=== PATIENT | male | born 1955 | race Caucasian/White ===

== ENCOUNTER 2016-11-26 21:04 | Emergency (ER) | payer OTHER ==
--- NOTE | 2016-11-26 22:21 | ED NURSING NOTES ---
Clinical Report - Nurses [facility] [address] [place] [address] 11/26/2016 21:08 Patient: CLAUDETTE MIDDLETON TRIAGE Triage time 21:14. Acuity: LEVEL 3. Chief Complaint: INJURY TO FOREHEAD. ALAN COMA SCORE: Alan Coma Scale: 15- eyes open spontaneously (4); best verbal response- oriented x 4 (5); best motor response- obeys commands (6). --21:17 TonyaB, R.N. 21:14 11/26/16. BP: 149/85. HR: 90. RR: 16. O2 saturation: 96%. Temp: 98.2 F. Pain level now: 5/10. --21:17 TonyaB, R.N. Weight: 97.5 kg. Height/Length: 71 inches. BMI: 30. --21:13 TonyaB, R.N. Medications OxyCONTIN Oral. --21:20 TonyaB, R.N. ProAir HFA Inhalation. --21:20 TonyaB, R.N. TEGretol Oral. --21:21 TonyaB, R.N. Allergies No Known Drug Allergy. --21:19 TonyaB, R.N. History Arrived by private vehicle. Historian: patient. Accompanied by family. ( pt fell inthe yard and hit his head on a planter box, pt has a large lac above his right ebrow). This occurred just prior to arrival. He sustained a laceration. He has had a headache. 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 SOCIAL HX: Never smoker. Occasional alcohol use. No drug use. No infectious disease exposure. SELF HARM ASSESSMENT: A self harm assessment was performed. The patient answered "no" to the question "Have you recently felt down, depressed, or hopeless?", "Have you noticed less interest or pleasure in doing things?", "Do you have thoughts of harming or killing yourself?", "Are you here because you tried to hurt yourself?", "Have you ever tried to hurt yourself before today?", "Have you recently had thoughts about harming or killing others?" and "Do you have any dangerous items in your possession?". FALL RISK ASSESSMENT: Fall risk assessment completed. No fall risk identified. NUTRITIONAL RISK ASSESSMENT: The nutritional risk assessment revealed no deficiencies. FUNCTIONAL ASSESSMENT: Functional assessment: no impairments noted. LEARNING NEEDS ASSESSMENT: The learning needs assessment revealed no barriers. ABUSE ASSESSMENT: Abuse assessment: The patient was asked "Do you feel safe in your home?". SKIN INTEGRITY ASSESSMENT: Skin integrity risk assessment completed. No skin integrity risk identified. --21:17 Brenna Correa. PAST MEDICAL HX: Last tetanus: (1 years ago). --21:18 Brenna Correa. PROBLEMS: Asthma. Hypertension. --21:20 Brenna Correa. Chronic pain. --21:20 Brenna Correa. ADDITIONAL SURGERIES: Arm . Knee Surgery. --21:20 Brenna Correa. Interventions ID band on patient. To treatment room. --:17 Brenna Correa. PHYSICAL ASSESSMENT Ambulatory to room. GENERAL / NEURO / PSYCH: Alert. Oriented X 4. Appears in no acute distress. HEENT: Head non-tender. Pupils equal, round and reactive to light. EOM intact. Right eyebrow area: deep laceration. Ear within normal limits. Mouth within normal limits upon inspection. Voice within normal limits. No swelling of head. No nasal injury noted. No dental injury noted. Mucous membranes are pink. RESPIRATORY: Respirations not labored. CVS: Capillary refill less than 2 seconds. BACK: No neck or back tenderness. ROM normal to the neck and back. SKIN: Skin is warm and dry. --21:19 Brenna Correa. NURSING PROGRESS NOTES Patient identifiers checked. Call light placed in reach. Side rails up. Patient placed in chair. Brakes of chair on. --:21 Brenna Correa. Patient gowned. --21:21 Brenna Correa. Wound cleansed with sterile saline and Betadine. Applied clean occlusive dressing consisting of Band-Aid and 4x4 gauze, following the application of antibiotic ointment. Secured with tape. --22:04 Rosa Maria Correa ( pt still refused to blow for ETOH level, pt admits to having 3 drinks of whiskey prior to arrival). --22:05 Rosa Maria Correa DISPOSITION / DISCHARGE Departure time: 22:29. Condition at departure: stable. Discharge instructions provided and reviewed with disability benefits specialist and the patient. Reviewed warnings (re: patient intoxicated). Treatments reviewed. Reviewed referrals for followup. Patient and disability benefits specialist verbalized understanding. Written instructions provided in Somali. The patient was discharged home and accompanied by disability benefits specialist. He left the Emergency Department in a wheelchair and via private vehicle. Pre Owned Sales Manager driving. --22:30 Ulices Magdaleno R.N. 22:28 11/26/16. BP: 149/90. HR: 89. RR: 20. O2 saturation: 95% on room air. Pain level now: 0/10. --22:30 Ulices Magdaleno R.N. Locked/Released at 11/26/2016 22:31 by Ulices Magdaleno R.N.
--- NOTE | 2016-11-26 22:21 | ED NURSING NOTES ---
Clinical Report - Nurses [facility] [address] [place] [address] 11/26/2016 21:08 Patient: CLAUDETTE MIDDLETON TRIAGE Triage time 21:14. Acuity: LEVEL 3. Chief Complaint: INJURY TO FOREHEAD. ALAN COMA SCORE: Alan Coma Scale: 15- eyes open spontaneously (4); best verbal response- oriented x 4 (5); best motor response- obeys commands (6). --21:17 TonyaB, R.N. 21:14 11/26/16. BP: 149/85. HR: 90. RR: 16. O2 saturation: 96%. Temp: 98.2 F. Pain level now: 5/10. --21:17 TonyaB, R.N. Weight: 97.5 kg. Height/Length: 71 inches. BMI: 30. --21:13 TonyaB, R.N. Medications OxyCONTIN Oral. --21:20 TonyaB, R.N. ProAir HFA Inhalation. --21:20 TonyaB, R.N. TEGretol Oral. --21:21 TonyaB, R.N. Allergies No Known Drug Allergy. --21:19 TonyaB, R.N. History Arrived by private vehicle. Historian: patient. Accompanied by family. ( pt fell inthe yard and hit his head on a planter box, pt has a large lac above his right ebrow). This occurred just prior to arrival. He sustained a laceration. He has had a headache. 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 SOCIAL HX: Never smoker. Occasional alcohol use. No drug use. No infectious disease exposure. SELF HARM ASSESSMENT: A self harm assessment was performed. The patient answered "no" to the question "Have you recently felt down, depressed, or hopeless?", "Have you noticed less interest or pleasure in doing things?", "Do you have thoughts of harming or killing yourself?", "Are you here because you tried to hurt yourself?", "Have you ever tried to hurt yourself before today?", "Have you recently had thoughts about harming or killing others?" and "Do you have any dangerous items in your possession?". FALL RISK ASSESSMENT: Fall risk assessment completed. No fall risk identified. NUTRITIONAL RISK ASSESSMENT: The nutritional risk assessment revealed no deficiencies. FUNCTIONAL ASSESSMENT: Functional assessment: no impairments noted. LEARNING NEEDS ASSESSMENT: The learning needs assessment revealed no barriers. ABUSE ASSESSMENT: Abuse assessment: The patient was asked "Do you feel safe in your home?". SKIN INTEGRITY ASSESSMENT: Skin integrity risk assessment completed. No skin integrity risk identified. --21:17 Brenna Correa. PAST MEDICAL HX: Last tetanus: (1 years ago). --21:18 Brenna Correa. PROBLEMS: Asthma. Hypertension. --21:20 Brenna Correa. Chronic pain. --21:20 Brenna Correa. ADDITIONAL SURGERIES: Arm . Knee Surgery. --21:20 Brenna Correa. Interventions ID band on patient. To treatment room. --:17 Brenna Correa. PHYSICAL ASSESSMENT Ambulatory to room. GENERAL / NEURO / PSYCH: Alert. Oriented X 4. Appears in no acute distress. HEENT: Head non-tender. Pupils equal, round and reactive to light. EOM intact. Right eyebrow area: deep laceration. Ear within normal limits. Mouth within normal limits upon inspection. Voice within normal limits. No swelling of head. No nasal injury noted. No dental injury noted. Mucous membranes are pink. RESPIRATORY: Respirations not labored. CVS: Capillary refill less than 2 seconds. BACK: No neck or back tenderness. ROM normal to the neck and back. SKIN: Skin is warm and dry. --21:19 Brenna Correa. NURSING PROGRESS NOTES Patient identifiers checked. Call light placed in reach. Side rails up. Patient placed in chair. Brakes of chair on. --:21 Brenna Correa. Patient gowned. --21:21 Brenna Correa. Wound cleansed with sterile saline and Betadine. Applied clean occlusive dressing consisting of Band-Aid and 4x4 gauze, following the application of antibiotic ointment. Secured with tape. --22:04 Rosa Maria Correa ( pt still refused to blow for ETOH level, pt admits to having 3 drinks of whiskey prior to arrival). --22:05 Rosa Maria Correa DISPOSITION / DISCHARGE Departure time: 22:29. Condition at departure: stable. Discharge instructions provided and reviewed with distilling department supervisor and the patient. Reviewed warnings (re: patient intoxicated). Treatments reviewed. Reviewed referrals for followup. Patient and distilling department supervisor verbalized understanding. Written instructions provided in Indian. The patient was discharged home and accompanied by distilling department supervisor. He left the Emergency Department in a wheelchair and via private vehicle. Frit Mixer driving. --22:30 Ulices Magdaleno R.N. 22:28 11/26/16. BP: 149/90. HR: 89. RR: 20. O2 saturation: 95% on room air. Pain level now: 0/10. --22:30 Ulices Magdaleno R.N. Locked/Released at 11/26/2016 22:31 by Ulices Magdaleno R.N.
--- NOTE | 2016-11-26 22:21 | ED CLINICAL REPORT ---
Clinical Report - Physicians/Mid Levels [facility] [address] [place] [address] 11/26/2016 21:08 Patient: CLAUDETTE MIDDLETON Time Seen: 21:14; initial patient contact, initial documentation, patient care assumed. Arrived- By private vehicle. Historian- patient, family, significant other and daughter. HISTORY OF PRESENT ILLNESS Chief Complaint: INJURY TO FACE. Location of injuries- face. The injury occurred just prior to arrival. Fell while walking and landed on the ground and a hard surface; tripped. Occurred at home. The patient complains of mild pain. The patient sustained a blow to the head. No neck pain, loss of consciousness or seizure. Not dazed. REVIEW OF SYSTEMS No numbness, loss of vision, chest pain, weakness or difficulty breathing. He sustained skin laceration. All systems otherwise negative, except as recorded above. PAST HISTORY See nurses notes. PROBLEMS: Asthma. Hypertension. --21:20 Madeline R.N. Chronic pain. --21:20 Madeline R.N. ADDITIONAL SURGERIES: Arm . Knee Surgery. --21:20 Madeline R.N. Tetanus immunization status is up-to-date. SOCIAL HISTORY Never smoker. Occasional alcohol use. Last drink was just prior to arrival. Under the influence in E.D. No drug use. No recent travel. Is a local resident. He lives with spouse. FAMILY HISTORY No significant family medical history. ADDITIONAL NOTES The nursing notes have been reviewed with agreement regarding the chief complaint, HPI, ROS, PMH and patient medications and allergies. PHYSICAL EXAM Vital Signs: 11/26/2016 21:14 BP: 149/85. HR: 90. RR: 16. O2 saturation: 96%. Temp: 98.2 F. Pain level now: 5/10. Have been reviewed as normal and appear to be correct. Appearance: Alert. Anxious. No acute distress. (strong etoh breath). Head: Right eyebrow area: mild tenderness and subcutaneous 4.0 cm horizontal laceration of the middle medial aspect of the eyebrow. No erythema, swelling, abrasion, ecchymosis or puncture wound. No foreign body or deformity. Head tender. No swelling of head. Eyes: Pupils equal, round and reactive to light. EOM intact. ENT: No dental injury. Pharynx normal. Neck: Painless ROM. Non-tender. CVS: Normal heart rate and rhythm. Heart sounds normal. Pulses normal. Respiratory: Breath sounds normal. Chest nontender. Abdomen: Soft and nontender. No organomegaly. Back: No tenderness. ROM normal. Skin: Skin intact. Skin warm and dry. Normal skin color. Normal skin turgor. Extremities: Normal inspection. Pelvis stable. Extremities atraumatic. No lower extremity edema. Neuro: Oriented X 3. Mood/affect normal. Speech normal. No motor deficit. Normal gait. No sensory deficit. PROGRESS AND PROCEDURES Laceration Repair: Location: right eyebrow. Length: 4 cm. Complexity: simple (local anesthesia used and sutured). Wound depth/shape- subcutaneous and irregular and involving fascia. Wound is clean. No contamination, foreign body or contused tissue present. No tissue loss. Distal neuro/vascular/tendon status normal. Tendon not examined. No tendon deficit or laceration or tendon injury. Local anesthesia provided using 1% lidocaine (5 mL). Prepped with Betadine. Wound explored, cleansed, irrigated and examined to the base in bloodless field with normal saline. Wound not debrided. No foreign material removed. Closure of skin: interrupted 6-0 nylon (18 sutures). Post-procedure: he is stable and there are no complications. Bleeding is controlled and neuro-vascular status is intact distal to the wound. Tetanus immunization up-to-date. Estimated blood loss: 5 mL. Patient and family counseled in person regarding the patient's stable condition and diagnosis. Differential Diagnosis: Other possible considerations: fall, etoh, face lac, fx, head injury, contusions, sprains, abrasions. Above considerations are based on history, physical exam and reassessment. Differential diagnosis was discussed with patient and patient's family. Disposition: Discharged home in good and improved condition (22:21). Condition: good and stable. CLINICAL IMPRESSION Single deep laceration to the right periorbital area.Treatment of laceration not delayed. No infection or foreign body present. Uncomplicated alcohol intoxication with delirium. No alcohol intoxication with alcohol dependence. Fall on same level by tripping. INSTRUCTIONS Protect wound and keep wound area clean. Soak in warm soapy water twice daily. Apply neosporin twice daily. Sutures should be removed in seven days. Warnings: HEAD INJURY PRECAUTIONS: An observer must check on the patient frequently for the next 24 hours to confirm that the patient responds as expected, is not confused, has no new weakness or numbness, and has no other problems. GENERAL WARNINGS: Return or contact your physician immediately if your condition worsens or changes unexpectedly, if not improving as expected, or if other problems arise. Specifically return if problem worsens. Follow-up: Follow up with your doctor in about one week for suture removal. Call for an appointment. Summary of care provided to patient and family. Understanding of the discharge instructions verbalized by family. (Electronically signed by Carmencita Delgado A.R.N.P. 11/26/2016 22:42)
--- NOTE | 2016-11-26 22:42 | ED MAR SUMMARY ---
..... Medication Administration Record [facility] [address] [place], [place] [id number] Patient: CLAUDETTE MIDDLETON Visit ID: [id number] 60y, M Weight: 97.5 kg Height/Length: 71 in BMI: 30 ALLERGIES: No Known Drug Allergy
--- NOTE | 2016-11-26 22:42 | ED MED RECONCILIATION SUMMARY ---
Patient: CLAUDETTE MIDDLETON Medication Reconciliation Report [facility] VisitID: [id number] [address] [place] [address] 60y, M Registration Date/Time: 11/26/2016 Weight: 97.5 kg Height/Length: 71 in. BMI: 30.0 ALLERGIES: No Known Drug Allergy The patient's Home Medications are listed below: THE FOLLOWING MEDICATIONS NEED TO BE RECONCILED: OxyCONTIN Oral ProAir HFA Inhalation TEGretol Oral The source(s) of the original Home Medication information: Not obtained. The following Medications were given to the patient in the Emergency Department: None. The following Medications were prescribed to the patient: None.
--- NOTE | 2016-11-26 22:42 | ED MED RECONCILIATION SUMMARY ---
Patient: CLAUDETTE MIDDLETON Medication Reconciliation Report [facility] VisitID: [id number] [address] [place] [address] 60y, M Registration Date/Time: 11/26/2016 Weight: 97.5 kg Height/Length: 71 in. BMI: 30.0 ALLERGIES: No Known Drug Allergy The patient's Home Medications are listed below: THE FOLLOWING MEDICATIONS NEED TO BE RECONCILED: OxyCONTIN Oral ProAir HFA Inhalation TEGretol Oral The source(s) of the original Home Medication information: Not obtained. The following Medications were given to the patient in the Emergency Department: None. The following Medications were prescribed to the patient: None.
--- NOTE | 2016-11-26 22:42 | ED MAR SUMMARY ---
..... Medication Administration Record [facility] [address] [place], [place] [id number] Patient: CLAUDETTE MIDDLETON Visit ID: [id number] 60y, M Weight: 97.5 kg Height/Length: 71 in BMI: 30 ALLERGIES: No Known Drug Allergy
--- NOTE | 2016-11-26 22:42 | ED DISCHARGE INSTRUCTIONS ---
Patient: CLAUDETTE MIDDLETON General Instructions [facility] VisitID: [id number] [place] [address] 60y, M Registration Date/Time: 11/26/2016 Single deep laceration to the right periorbital area.Treatment of laceration not delayed. No infection or foreign body present. Uncomplicated alcohol intoxication with delirium. No alcohol intoxication with alcohol dependence. Fall on same level by tripping. INSTRUCTIONS Protect wound and keep wound area clean. Soak in warm soapy water twice daily. Apply neosporin twice daily. Sutures should be removed in seven days. Warnings: HEAD INJURY PRECAUTIONS: An observer must check on the patient frequently for the next 24 hours to confirm that the patient responds as expected, is not confused, has no new weakness or numbness, and has no other problems. GENERAL WARNINGS: Return or contact your physician immediately if your condition worsens or changes unexpectedly, if not improving as expected, or if other problems arise. Specifically return if problem worsens. Follow-up: Follow up with your doctor in about one week for suture removal. Call for an appointment. Summary of care provided to patient and family. Understanding of the discharge instructions verbalized by family. ADDITIONAL INFORMATION Mechanical Fall You have had a fall today. It appears that the cause is mechanical. That means that you slipped, tripped or lost your balance. If your fall had been due to fainting or a seizure, further tests would be required. Home Care: Rest today and resume your normal activities when you are feeling back to normal. If you were injured during the fall, follow the advice from your doctor regarding care of your injury. You may use acetaminophen (Tylenol) or ibuprofen (Motrin, Advil) to control pain, unless another pain medicine was prescribed. [NOTE: If you have chronic liver or kidney disease or ever had a stomach ulcer or GI bleeding, talk with your doctor before using these medicines.] Fall Prevention: Was there anything that caused your fall that can be fixed, removed, or replaced? Make your home safe by keeping walkways clear of objects you may trip over. Use non-slip pads under rugs. Do not walk in poorly lit areas. Do not stand on chairs or wobbly ladders. Use caution when reaching overhead or looking upward. This position can cause a loss of balance. Be sure your shoes fit properly, have non-slip bottoms and are in good condition. Be cautious when going up and down curbs, and walking on uneven sidewalks. If your balance is poor, consider using a cane or walker. Stay as active as you can. Balance, flexibility, strength, and endurance all come from exercise. They all play a role in preventing falls. Follow Up with your doctor or as advised by our staff. Get Prompt Medical Attention if any of the following occur: Repeated mechanical falls, or unexplained falls Dizziness, fainting or seizure Severe headache Chest pain or shortness of breath Palpitations (very rapid or very slow or irregular heartbeat) Blood in vomit, stools (black or red color) Weakness of an arm or leg or one side of the face Difficulty with speech or vision Laceration (All Closures) Alaceration is a cut through the skin. This will usually require stitches (sutures) or ivania if it is deep. Minor cuts may be treated with a surgical tape closure orskin glue. Home care The following guidelines will help you care for your laceration at home: Extremity, face, or trunk wounds Keep the wound clean and dry. If a bandage was applied and it becomes wet or dirty, replace it. Otherwise, leave it in place for the first 24 hours. If stitches or ivania were used, clean the wound daily. After removing the bandage, wash the area with soap and water. Use a wet cotton swab to loosen and remove any blood or crust that forms. The doctor may prescribe an antibiotic cream or ointment to prevent infection. Do not stop taking this medication until you have finished the prescribed course or the doctor tells you to stop. The doctor may also prescribe medications for pain. Follow the doctors instructions for taking these medications. You may remove the bandage to shower as usual after the first 24 hours, but do not soak the area in water (no swimming) until the stitches or ivania are removed. If surgical tape was used, keep the area clean and dry. If it becomes wet, blot it dry with a towel. If skin glue was used, do not scratch, rub, or pick at the adhesive film. Do not place tape directly over the film. Do not apply liquid, ointment, or creams to the wound while the film is in place. Do not clean the wound with peroxide and do not apply ointments. Avoid activities that cause heavy sweating until the film has fallen off. Protect the wound from prolonged exposure to sunlight or tanning lamps. You may shower as usual but do not soak the wound in water (no baths or swimming). The film will fall off by itself in 510 days. Scalp wounds During the first two days, you may carefully rinse your hair in the shower to remove blood, glass or dirt particles. After two days, you may shower and shampoo your hair normally. Do not soak your scalp in the tub or go swimming until the stitches or ivania have been removed. Talk with your doctor before applying any antibiotic ointment to the wound. Mouth wounds Eat soft foods to reduce pain. If the cut is inside of your mouth, clean by rinsing after each meal and at bedtime with a mixture of equal parts water and hydrogen peroxide (do not swallow!). Or, you can use a cotton swab to directly apply hydrogen peroxide onto the cut. Mouth wounds can be painful when eating. You may use an [id number] local numbing solution for pain relief. If this is not available, you may use any numbing solution for teething babies. You may apply this directly to the sores with a cotton-tip swab or with your finger. Follow-up care Follow up with your health care provider. Most skin wounds heal within ten days. Mouth and facial wounds heal within five days. However, even with proper treatment, a wound infection may sometimes occur. Therefore, you should check the wound daily for signs of infection listed below. Stitches should be removed from the face within five days; stitches and ivania should be removed from other parts of the body within 714 days. If dissolving stitches were used in the mouth, these will fall out or dissolve without the need for removal. If tape closures were used, remove them yourself if they have not fallen off after 7 days. Ifskin glue was used, the film will fall off by itself in 510 days. When to seek medical care Get prompt medical attention if any of these occur: Bleeding not controlled by direct pressure Signs of infection, including increasing pain in the wound, increasing wound redness or swelling, or pus coming from the wound Fever of 100.4F (38C) or higher, or as directed by your health care provider Stitches or ivania come apart or fall out or surgical tape falls off before 7 days Wound edges re-open Laceration, Face (Suture Or Tape) Alaceration is a cut through the skin. This will require stitches if it is deep. Minor cuts may be treated with surgical tape. Home care The following guidelines will help you care for your laceration at home: If a bandage was applied and it becomes wet or dirty, replace it. Otherwise, leave it in place for the first 24 hours, then change it once a day or as directed. If sutures were used, clean the wound daily: After removing the bandage, wash the area with soap and water. Use a wet cotton swab to loosen and remove any blood or crust that forms. After cleaning, keep the wound clean and dry. Talk with your doctor before applying any antibiotic ointment to the wound. Reapply a fresh bandage. You may remove the bandage to shower as usual after the first 24 hours, but do not soak the area in water (no swimming) until the sutures are removed. If surgical tape was used, keep the area clean and dry. If it becomes wet, blot it dry with a towel. The doctor may prescribe an antibiotic cream or ointment to prevent infection. Do not stop taking this medication until you have have finished the prescribed course or the doctor tells you to stop. The doctor may also prescribe medications for pain. Follow the doctor's instructions for taking these medications.If you have chronic liver or kidney disease or ever had a stomach ulcer or GI bleeding, talk with your doctor before using these medicines. Follow-up care Follow up with your health care provider. Most facial cuts heal in five days with no problem. However, even with proper treatment, a wound infection sometimes occurs. Therefore, check the wound daily for the warning signs listed below. Stitches should not be left in the face for more thanfivedays; otherwise, permanent stitch apple may form. If surgical tape closures were used, you may remove them yourself afterfivedays, if they have not fallen off by then. When to seek medical care Get prompt medical attention if any of these occur: Increasing pain in the wound Redness, swelling, or pus coming from the wound If sutures come apart or fall out before 5 days If the surgical tape closures fall off before 5 days, or the wound edges reopen Fever of 100.4F (38C) or higher, or as directed by your health care provider Bleeding not controlled by direct pressure Alcohol Intoxication Alcohol intoxication occurs when you drink alcohol faster than your liver can remove it from your system. Alcohol intoxication affects your judgment and coordination. Very high blood alcohol levels can cause coma, very slow breathing and even . If you drink alcohol every day, this may gradually cause permanent damage to your liver, brain, heart, pancreas and other organs. Alcohol use during may cause permanent damage to the growing baby. Home Care: Do not drink any more alcohol. DO NOT DRIVE until all effects of the alcohol have worn off. Get lots of rest over the next few days. Drink plenty of water and other non-alcoholic liquids. Try to eat regular meals. If you have been drinking heavily on a daily basis, you may go through alcohol withdrawl. This is also called the shakes or DTs. The usual symptoms last 3 to 4 days and may include nervousness, shakiness, nausea, sweating or sleeplessness. During this time, it is best that you stay with family or friends who can help and support you. You can also admit yourself to a residential detox program. If your symptoms are severe, contact your doctor for medicines to help. Follow Up: If alcohol is causing a problem in your life, these and other organizations can help you: Alcoholics Anonymous offers support through a self-help fellowship. There are no dues or fees. See the Yellow Pages and call for time and place of meetings. www.aa.org Anat offers support to families of alcohol users. 963.133.8585 www.al-anon.org [employer] 260-200-7835 www.ncadd.org There are also inpatient or residential alcohol detox programs. Check the Internet or phonebook Yellow Pages under Drug Abuse & Treatment Centers. Get Prompt Medical Attention if any of the following occur: there) Head Injury, No Wake-Up (Adult) You have had a head injury. It does not appear serious at this time. Symptoms of a more serious problem (concussion, bruising, or bleeding in the brain) may appear later. Therefore, watch for the WARNING SIGNS listed below. Home Care: Your healthcare provider will tell you whether its okay to drive. If so, you can drive yourself home. For the next day or so, be careful when driving or using heavy machinery until you are sure you have no delayed symptoms. During the next 24 hours someone must stay with you to check for the signs below. It is not necessary to stay awake or be awakened during the night. If you have swelling of the face or scalp, apply an ice pack (ice cubes in a plastic bag, wrapped in a towel) for 20 minutes. Do this every 1-2 hours until the swelling starts to go down. Do not use aspirin or ibuprofen (Motrin, Advil) after a head injury.You may use acetaminophen (Tylenol)to control pain, unless another pain medicine was prescribed. [NOTE: If you have chronic liver or kidney disease or ever had a stomach ulcer or GI bleeding, talk with your doctor before using these medicines.] For the next 24 hours: Do not take alcohol, sedatives or medicines that make you sleepy. Avoid strenuous activities. No lifting or straining. If you have had any symptoms of a concussion today (nausea, vomiting, dizziness, confusion, headache, memory loss or if you were knocked out), do not return to sports or any activity that could result in another head injury until all symptoms are gone and you have been cleared by your doctor. A second head injury before fully recovering from the first one can lead to serious brain injury. Follow Up with your doctor if symptoms are not improving after 24 hours, or as directed. [NOTE: A radiologist will review any X-rays or CT scans that were taken. We will notify you of any new findings that may affect your care.] Get Prompt Medical Attention if any of the followingWARNING SIGNS occur: Repeated vomiting Severe or worsening headache or dizziness Unusual drowsiness, or unable to awaken as usual Confusion or change in behavior or speech, memory loss, blurred vision Convulsion (seizure) Increasing scalp or face swelling Redness, warmth or pus from the swollen area Fluid drainage or bleeding from the nose or ears You have been given the following additional information: Fall, Mechanical Laceration, All Laceration, Face (Suture Or Tape) Alcohol Intoxication HEAD INJURY, No Wake-Up (Adult) (Electronically signed by Carmencita Delgado A.R.N.P. 11/26/2016 22:42)
== END 2016-11-26 22:30 | disposition home or self-care (01) ==
LOC: ED SRH 21:04
DX: S01.111A Laceration without foreign body of right eyelid and periocular area, initial encounter (principal); F10.120 Alcohol abuse with intoxication, uncomplicated; W01.0XXA Fall on same level from slipping, tripping and stumbling without subsequent striking against object, initial encounter; Y93.01 Activity, walking, marching and hiking; Y99.9 Unspecified external cause status; Y92.009 Unspecified place in unspecified non-institutional (private) residence as the place of occurrence of the external cause; I10 Essential (primary) hypertension